=== PATIENT | female | born 1980 | race African-American/Black ===

== ENCOUNTER 2018-12-22 13:15 | Inpatient (IN) | payer OTHER ==
[2018-12-22] MEDS ORDERED: AMPICILLIN - 2 GM in SODIUM CHLORIDE 100 ML IVPB ONE (13:30)
[2018-12-22 14:31] VITALS: BMI 33.2
[2018-12-22] MEDS ORDERED: ELECTROLYTE-148 SOLN 1,000 ML IV SCH (14:45)
[2018-12-22] MEDS ORDERED: PROMETHAZINE HCL 25 MG/1 ML VIAL ONE (15:27)
[2018-12-22] MEDS ORDERED: BUTORPHANOL TARTRATE 1 MG/ML VIAL ONE (15:27)
[2018-12-22] MEDS ORDERED: BUTORPHANOL TARTRATE 2 MG/ML VIAL IVPUSH PRN (15:28)
[2018-12-22] MEDS ORDERED: PROMETHAZINE HCL 25 MG/1 ML VIAL IVPB ONE (15:29)
[2018-12-22] MEDS ORDERED: OXYTOCIN 30 UNITS in 0.9% NS 30 UNIT/500 ML INFUS.BAG IVPB SCH (15:45)
[2018-12-22] MEDS ORDERED: OXYTOCIN 30 UNITS in 0.9% NS 30 UNIT/500 ML INFUS.BAG IVPB ONE (15:49)
[2018-12-22 16:05] LABS: BASO % 0.3 % (0-2.0); EOS % 2.7 % (0-4.5); HEMATOCRIT 38.7 % (32.4-45.2); HEMOGLOBIN 12.7 GM/dL (10.7-15.3); LYMPH % 27.2 % (8-40); MCH 27.9 pg (25.7-33.7); MCHC 32.8 g/dl (32.0-36.0); MEAN CELL VOLUME 85.1 fl (80-96); MEAN PLT VOLUME 8.7 fl (7.5-11.1); MONO % 7.8 % (3.8-10.2); PLATELET COUNT 232 K/MM3 (134-434); RBC 4.55 M/mm3 (3.60-5.2); RDW 14.6 % (11.6-15.6); WHITE BLOOD COUNT 6.1 K/mm3 (4.0-10.0)
[2018-12-22] MEDS ORDERED: OXYTOCIN 20 UNITS in 0.9% NS 20 UNIT/1,000 ML INFUS.BAG IV ONE ×2 (16:12→19:56)
[2018-12-22 16:23] LABS: BLOOD UREA NITROGEN 6.5 mg/dL (7-18); CALCIUM 8.8 mg/dL (8.5-10.1); CREATININE 0.8 mg/dL (0.55-1.3); POTASSIUM 4.6 mmol/L (3.5-5.1)
[2018-12-22 16:28] LABS: INR 1.04 (0.83-1.09); PROTHROMBIN TIME (PATIENT) 12.3 SEC (9.7-13.0)
[2018-12-22 16:31] LABS: ACTIVATED PTT 29.7 SECONDS (25.2-36.5)
[2018-12-22] MEDS ORDERED: AMPICILLIN SODIUM 1 GM VIAL ONE (16:53)
--- NOTE | 2018-12-22 17:03 | HP ---
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: No: Alzheimer's, CVA, Dementia, Migraine, Multiple Sclerosis, Peripheral Neuropathy, Parkinson's, Seizure, Syncope, TIA, Vertigo, Other Cardiovascular: No: AFIB, Aneurysm, Aortic Insufficiency, Aortic Stenosis, CAD, CHF, Deep Vein Thrombosis, HTN, Hyperlipdemia, [place], Mitral Insufficiency, Mitral Stenosis, Murmur, Pulmonary Hypertension, Other Pulmonary: No: Asthma, Bronchitis, Cancer, COPD, O2 Dependent, Pneumonia, Previously Intubated, Pulmonary Embolus, Pulmonary Fibrosis, Sleep Apnea, Other Gastrointestinal: No: Ascites, Cancer, Constipation, Crohn's Disease, Diverticulitis, Diverticulosis, Esophageal Varices, Gastritis, GERD, GI Bleed, Hemorrhoids, Hiatal Hernia, Inflamatory Bowel Disease, Irritable Bowel Disease, Pancreatitis, Peptic Ulcer Disease, Ulcerative Colitis, Other Hepatobiliary: No: Cirrhosis, Cholelithiasis, Cholecystitis, Choledocholithiasis , Hepatitis A, Hepatitis B, Hepatitis C, Other Renal/: No: Renal Failure, Renal Inusuff, BPH, Cancer, Hematuria, Hemodialysis , Neurogenic Bladder, Renal Calculi, UTI, Other Reproductive: No: Ectopic , Endometriosis, Fibroids, PID, Polycystic Ovary Syndrome, Postmenopausal, Other ...: 4 ...Para: 2 ...Term: 2 ...: 0 ...Spon : 1 ...Induced : 0 ...Multiple Gestation: 36 ... Weeks Gestation by Dates: 36 ...EDC by Joan: 01/16/19 Heme/Onc: No: Anemia, B12 Deficiency, Bleeding Disorder, Cancer, Current Chemotherapy, Current Radiation Therapy, Hemochromatosis, Hypercoaguable State, Myeloproliferative Synd, Sickle Cell Disease, Sickle Cell Trait, Thrombocytopenia, Other Infectious Disease: No: AIDS, C-Diff, Herpes Zoster, HIV, MRSA, STD's, Tuberculosis, VREF, Other Psych: No: Addictions, Anxiety, Bipolar, Depression, Panic, Psychosis, Schizophrenia, Other Musculoskeletal: No: Bursitis, Chronic low back pain, Hemiparesis, Hemiplegia, Osteoarthritis, Paraplegia, Other Rheumatology: No: Fibromyalgia, Gout, Lupus, Rheumatoid Arthritis, Sarcoidosis, Vasculitis, Other ENT: No: Allergic Rhinitis, Sinusitis, Other Endocrine: No: Ransom's Disease, Ranjeet's Disease, Diabetes Insipidus, Diabetes Mellitus, Hyperparathyroidism, Hyperthyroidism, Hypothyroidism, Osteopenia, SIADH, Other Dermatology: No: Basal Cell, Cellulitis, Eczema, Melanoma, Psoriasis, Squamous Cell, Other Additional Medical History: 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 - Past Surgical History Past Surgical History: Yes: None Hx Myomectomy: No Hx Transabdominal Cerclage: No - Advance Directives Advance Directives: Yes: Living Will - Smoking History Smoking history: Never smoked Have you smoked in the past 12 months: No - Alcohol/Substance Use Hx Alcohol Use: No History of Substance Use: reports: None - Social History Usual Living Arrangement: Yes: With Spouse ADL: Independent History of Recent Travel: No Home Medications - Allergies Allergies/Adverse Reactions: Allergies Allergy/AdvReac Type Severity Reaction Status Date / Time shellfish derived Allergy Severe Hives Verified 12/22/18 13:52 No Known Drug Allergies Allergy Verified 12/22/18 13:52 - Home Medications Home Medications: Ambulatory Orders Glyburide 5 mg PO DAILY 12/22/18 Prenat 115/Iron Fum/Folic/Dss [ 19 Tablet] 1 tab PO DAILY 12/22/18 Family Disease History - Family Disease History Family History: Denies Review of Systems - Review of Systems Constitutional: reports: No Symptoms Eyes: reports: No Symptoms HENT: reports: No Symptoms Neck: reports: No Symptoms Cardiovascular: reports: No Symptoms Respiratory: reports: No Symptoms Gastrointestinal: reports: No Symptoms Genitourinary: reports: No Symptoms Breasts: reports: No Symptoms Reported Musculoskeletal: reports: No Symptoms Integumentary: reports: No Symptoms Neurological: reports: No Symptoms Endocrine: reports: No Symptoms Hematology/Lymphatic: reports: No Symptoms Psychiatric: reports: No Symptoms Pain Intensity: 5 Physical Exam - Maternity Vital Signs: Vital Signs Temperature 97.5 F L 12/22/18 16:00 Pulse Rate 78 12/22/18 16:00 Respiratory Rate 18 12/22/18 16:00 Blood Pressure 123/74 12/22/18 16:00 O2 Sat by Pulse Oximetry (%) Constitutional: Yes: Well Nourished, No Distress, Calm Eyes: Yes: WNL, Conjunctiva Clear, EOM Intact HENT: Yes: WNL, Atraumatic, Normocephalic Neck: Yes: WNL, Supple, Trachea Midline Cardiovascular: Yes: WNL, Regular Rate and Rhythm Lungs: Clear to auscultation Breast(s): Yes: WNL - Abdominal Exam/OB Fundal Height: 38 Number of Fetuses: Single Presentation: Vertex Contractions: Yes Regularity: Regular Intensity: Mild/Mod Monitor Mode: External Heart Rate Location: [facility] Category: I Accelerations: Uniform Decelerations: None - Vaginal Exam/OB Vaginal Bleediing: Bloody Show Speculum Exam: No Amniotic Membrane Status: Intact Presentation: Vertex/Position Station: -1 - Physical Exam Musculoskeletal: Yes: WNL Extremities: Yes: WNL Edema: Yes Edema: LUE: 1+, RUE: 1+, LLE: 1+ Integumentary: Yes: WNL Deep Tendon Reflex Grade: Normal +2 ...Motor Strength: WNL Psychiatric: Yes: WNL, Alert, Oriented - Labs Lab Results: CBC, BMP 12/22/18 15:00 12/22/18 15:00 Hemorrhage Risk Assessment - Risk Factors Risk Score: 0 Risk Level: Low Risk Assessment/Plan immenent delivery, active labro, 5 cm
--- NOTE | 2018-12-22 17:11 | PN ---
Progress Note (short form) - Note Progress Note: 330pm 6cm, 90%_1. uc q 5 m, arom done, clear, ampicillin given, anticipate in a few hours.
[2018-12-22] MEDS ORDERED: LIDOCAINE HCL 1% PRESERVATIVE FREE - 30ML VIAL ONE (17:24)
[2018-12-22] MEDS ORDERED: AMPICILLIN - 1 GM in SODIUM CHLORIDE 100 ML IVPB SCH (17:30)
[2018-12-22] MEDS ORDERED: oxyCODONE HCL 5 MG TABLET PO PRN (17:58)
[2018-12-22] MEDS ORDERED: METHYLERGONOVINE MALEATE 0.2 MG/1 ML AMP IM PRN (17:58)
[2018-12-22] MEDS ORDERED: BENZOCAINE 28 GM HEMORRHOIDAL OINTMENT TP PRN (17:58)
[2018-12-22] MEDS ORDERED: WITCH HAZEL 50% (TUCKS) 40 PAD/JAR PAD TP PRN (17:58)
[2018-12-22] MEDS ORDERED: BENZOCAINE 20% 57 GM BOTTLE TP PRN (17:58)
[2018-12-22] MEDS ORDERED: BISACODYL 10 MG SUPP.RECT RC PRN (17:58)
[2018-12-22] MEDS ORDERED: OXYTOCIN 20 UNITS in 0.9% NS 20 UNIT/1,000 ML INFUS.BAG IV SCH ×2 (18:00→18:30)
--- NOTE | 2018-12-22 18:02 | PN ---
Progress Note (short form) - Note Progress Note: 515pm , fully dilated, pushing soon
--- NOTE | 2018-12-22 18:05 | PN ---
Delivery - Delivery Type of Anesthesia: Local Episiotomy/Laceration: Right Mediolateral EBL (cc): 350 Delivery, Single - Stages of Labor Date 1st Stage Initiatied: 12/22/18 Time 1st Stage Initiated: 09:30 Date 2nd Stage Initiated: 12/22/18 Time 2nd Stage Initiated: 17:15 Date of Delivery: 12/22/18 Time of Delivery: 17:20 Time Placenta Delivered: 17:25 Placenta: Yes: Spontaneous - Condition of Infant Glaucoma Specialist/Detective Precinct Present: No Infant Gender: Female Weight: 3.175 kg Position: Left, OA Total Hours ROM (Hrs/Mins): 2/05 - 1 Minute Total Score: 8 5 Minutes Total Score: 9 - [place] Feeding Plan Initial Plan: Elected not to breastfeed exclusively throughout hospitalization Remarks - Remarks Remarks: pt came in in active labor, labor at 34 weeks, s/p betamethasone x 2 doses, gdm on diet on glyburide
[2018-12-22] MEDS ORDERED: ACETAMINOPHEN 325 MG TABLET (FP) ONE (18:12)
[2018-12-22] MEDS: IBUPROFEN 600 MG TABLET (FP) PO PRN (18:15)
[2018-12-22] MEDS: ACETAMINOPHEN 325 MG TABLET (FP) PO PRN (18:15)
[2018-12-23 07:33] LABS: BASO % 0.3 % (0-2.0); EOS % 1.6 % (0-4.5); HEMOGLOBIN 10.9 GM/dL (10.7-15.3); MCH 27.9 pg (25.7-33.7); MCHC 33.1 g/dl (32.0-36.0); MEAN CELL VOLUME 84.3 fl (80-96); MEAN PLT VOLUME 8.7 fl (7.5-11.1); MONO % 7.7 % (3.8-10.2); NEUT % 71.4 % (42.8-82.8); PLATELET COUNT 208 K/MM3 (134-434); RBC 3.92 M/mm3 (3.60-5.2); RDW 14.3 % (11.6-15.6); WHITE BLOOD COUNT 9.3 K/mm3 (4.0-10.0)
--- NOTE | 2018-12-23 14:13 | PN ---
Post Progress Note Post Day: 1 Type of Delivery: Vital Signs: Vital Signs Temperature 98.3 F 12/23/18 09:56 Pulse Rate 85 12/23/18 09:56 Respiratory Rate 20 12/23/18 09:56 Blood Pressure 108/69 12/23/18 09:56 O2 Sat by Pulse Oximetry (%) 99 12/22/18 18:45 Breast Exam: Yes: Soft Uterus: Yes: Fundus Firm, Fundus below umbilicus Incision: Yes: Dressing dry and intact Abdomen/GI: Yes: Abdomen soft, Passing flatus, Tolerating PO Lochia: Yes: Serosa Lochia, amount: Small Extremities: Yes: Calves non-tender Perineum: Yes: Intact, Episiotomy Activity: Ambulating - Labs Labs: CBC WBC 9.3 K/mm3 (4.0-10.0) 12/23/18 06:37 RBC 3.92 M/mm3 (3.60-5.2) 12/23/18 06:37 Hgb 10.9 GM/dL (10.7-15.3) 12/23/18 06:37 Hct 33.0 % (32.4-45.2) 12/23/18 06:37 MCV 84.3 fl (80-96) 12/23/18 06:37 MCH 27.9 pg (25.7-33.7) 12/23/18 06:37 MCHC 33.1 g/dl (32.0-36.0) 12/23/18 06:37 RDW 14.3 % (11.6-15.6) 12/23/18 06:37 Plt Count 208 K/MM3 (134-434) 12/23/18 06:37 MPV 8.7 fl (7.5-11.1) 12/23/18 06:37 Absolute Neuts (auto) 6.6 K/mm3 (1.5-8.0) 12/23/18 06:37 Neutrophils % 71.4 % (42.8-82.8) 12/23/18 06:37 Lymphocytes % 19.0 % (8-40) D 12/23/18 06:37 Monocytes % 7.7 % (3.8-10.2) 12/23/18 06:37 Eosinophils % 1.6 % (0-4.5) 12/23/18 06:37 Basophils % 0.3 % (0-2.0) 12/23/18 06:37 Nucleated RBC % 0 % (0-0) 12/23/18 06:37 Assessment/Plan doing well, glucose are fine, will dc pt home tomorrow
--- NOTE | 2018-12-23 14:14 | DS ---
Physical Exam-[employer] Vital Signs: Vital Signs Temperature 98.3 F 12/23/18 09:56 Pulse Rate 85 12/23/18 09:56 Respiratory Rate 20 12/23/18 09:56 Blood Pressure 108/69 12/23/18 09:56 O2 Sat by Pulse Oximetry (%) 99 12/22/18 18:45 Constitutional: Yes: Well Nourished, No Distress, Calm Eyes: Yes: WNL, Conjunctiva Clear, EOM Intact HENT: Yes: WNL, Atraumatic, Normocephalic Neck: Yes: WNL, Supple, Trachea Midline Cardiovascular: Yes: WNL, Regular Rate and Rhythm Respiratory: Yes: WNL, Regular, CTA Bilaterally Gastrointestinal: Yes: WNL, Normal Bowel Sounds, Soft ...Rectal Exam: Yes: WNL Renal/: Yes: WNL Pelvis: Yes: WNL External Genitalia: Yes: Normal Internal Exam Deferred: No Vaginal Exam: Yes: Normal Cervix: Yes: Normal Uterus: Yes: Normal Adnexa: Normal: Bilateral ....Post : Yes: Uterus firm, Uterus non-tender Breast(s): Yes: WNL Musculoskeletal: Yes: WNL Extremities: Yes: WNL Edema: LUE: 1+, RUE: 1+, LLE: 1+, RLE: 1+ Integumentary: Yes: WNL Wound/Incision: Yes: Clean/Dry, Well Approximated Neurological: Yes: WNL, Alert, Oriented ...Motor Strength: WNL Psychiatric: Yes: WNL, Alert, Oriented Labs: CBC, BMP 12/23/18 06:37 12/22/18 15:00 Delivery - Delivery Type of Anesthesia: Local Episiotomy/Laceration: Right Mediolateral EBL (cc): 350 Delivery, Single - Stages of Labor Date 1st Stage Initiatied: 12/22/18 Time 1st Stage Initiated: 09:30 Date 2nd Stage Initiated: 12/22/18 Time 2nd Stage Initiated: 17:15 Date of Delivery: 12/22/18 Time of Delivery: 17:20 Time Placenta Delivered: 17:25 Placenta: Yes: Spontaneous - Condition of Adult Education Teacher/Letter Carrier Present: No Infant Gender: Female Weight: 3.175 kg Position: Left, OA Total Hours ROM (Hrs/Mins): 2/05 - 1 Minute Total Score: 8 5 Minutes Total Score: 9 - [place] Feeding Plan Initial Plan: Elected not to breastfeed exclusively throughout hospitalization Discharge Summary Reason For Visit: LABOR ADMISSION Condition: Stable - Instructions Diet, Activity, Other Instructions: regular Disposition: HOME - Home Medications Comprehensive Discharge Medication List: Ambulatory Orders Glyburide 5 mg PO DAILY 12/22/18 Prenat 115/Iron Fum/Folic/Dss [ 19 Tablet] 1 tab PO DAILY 12/22/18
[2018-12-23] MEDS ORDERED: SENNOSIDES/DOCUSATE COMBO (SENNA PLUS) TABLET (UD) PO PRN (22:00)
[2018-12-23] MEDS: IBUPROFEN 600 MG TABLET (FP) PO PRN (22:29)
[2018-12-23] MEDS: ACETAMINOPHEN 325 MG TABLET (FP) PO PRN (22:29)
--- NOTE | 2018-12-24 07:35 | PN ---
Post Progress Note Post Day: 2 Type of Delivery: Vital Signs: Vital Signs Temperature 97.7 F 12/23/18 20:54 Pulse Rate 90 12/23/18 20:54 Respiratory Rate 20 12/23/18 20:54 Blood Pressure 114/59 L 12/23/18 20:54 O2 Sat by Pulse Oximetry (%) 99 12/22/18 18:45 Breast Exam: Yes: Soft Uterus: Yes: Fundus Firm, Fundus below umbilicus, Non-tender Abdomen/GI: Yes: Abdomen soft, Passing flatus, Tolerating PO Lochia: Yes: Serosa Lochia, amount: Small Extremities: Yes: Calves non-tender Perineum: Yes: Intact Activity: Ambulating - Labs Labs: CBC WBC 9.3 K/mm3 (4.0-10.0) 12/23/18 06:37 RBC 3.92 M/mm3 (3.60-5.2) 12/23/18 06:37 Hgb 10.9 GM/dL (10.7-15.3) 12/23/18 06:37 Hct 33.0 % (32.4-45.2) 12/23/18 06:37 MCV 84.3 fl (80-96) 12/23/18 06:37 MCH 27.9 pg (25.7-33.7) 12/23/18 06:37 MCHC 33.1 g/dl (32.0-36.0) 12/23/18 06:37 RDW 14.3 % (11.6-15.6) 12/23/18 06:37 Plt Count 208 K/MM3 (134-434) 12/23/18 06:37 MPV 8.7 fl (7.5-11.1) 12/23/18 06:37 Absolute Neuts (auto) 6.6 K/mm3 (1.5-8.0) 12/23/18 06:37 Neutrophils % 71.4 % (42.8-82.8) 12/23/18 06:37 Lymphocytes % 19.0 % (8-40) D 12/23/18 06:37 Monocytes % 7.7 % (3.8-10.2) 12/23/18 06:37 Eosinophils % 1.6 % (0-4.5) 12/23/18 06:37 Basophils % 0.3 % (0-2.0) 12/23/18 06:37 Nucleated RBC % 0 % (0-0) 12/23/18 06:37 Assessment/Plan dc home today
[2018-12-24 14:59] VITALS: BP 114/70; PULSE 77; TEMP 98.7
== END 2018-12-24 12:05 | disposition home or self-care (01) | DRG 807 ==
LOC: JLDR 13:15 → J3W 20:14
PROVIDERS: ADMIT Obstetrics & Gynecology; ATTEND Obstetrics & Gynecology
PROC: 10E0XZZ Delivery of Products of Conception, External Approach (ICD-10-PCS; principal; 2018-12-22)
PROC: 0W8NXZZ Division of Female Perineum, External Approach (ICD-10-PCS; 2018-12-22)
DX: O60.14X0 Preterm labor third trimester with preterm delivery third trimester, not applicable or unspecified (principal); Z37.0 Single live birth; Z3A.34 34 weeks gestation of pregnancy
CPT/HCPCS: 36415; 59409; 80048; 85025; 85610; 85730; 86593; 86850; 86900; 86901; 87389